=== PATIENT | female | born 1955 | race Caucasian/White ===

== ENCOUNTER 2016-03-24 18:11 | Emergency (ER) | payer OTHER ==
[~2016-03-24] VITALS: Ht 177.8 cm; Wt 85.5 kg
[~2016-03-24 18:11] MED LIST: Albuterol 2.5 mg/3 mL Inhalation Solution NEB ONE
[2016-03-24 18:14] VITALS: BP 132/77; PULSE 117; RESP 26; O2SAT 91
[2016-03-24 18:38] VITALS: BP 104/78; PULSE 115; RESP 26; O2SAT 92
--- NOTE | 2016-03-24 18:54 | ED.REPORT ---
HPI-Dyspnea / Wheezing Date of Service Mar 24, 2016 ED Provider: Dr. Leon Urena Patient is a 60-year-old female who reports to the ED complaining of SOB onset two days ago. Patient states that she "really can't breathe." She has been using inhalers and nebulizers, but they aren't working. Symptoms have increased in severity since onset. Pt c/o associated pain with inhalation. She states she has pet ferrets and they have pneumonia. Nursing Notes Stated Complaint: TROUBLE BREATHING Chief Complaint: Respiratory Distress Nursing Notes Reviewed: Yes Allergies: Coded Allergies: No Known Allergies (Unverified , 03/24/16) General Time Seen by MD: 18:53 Chief Complaint Shortness of breath Hx Obtained From: Patient Arrived By: Walk-in Sudden in Onset?: Yes Onset Occurred: 2 days ago Symptom Duration: Since onset Severity: Current: Mild Recent Healthcare: Recent doctor visit, Recent hospitalization Similar Sx Previous: Yes Past Medical History Past Medical History denies Past Surgical History denies Smoking History Never Smoker Ambulatory Status Independent Review of Systems Respiratory: Reports: Shortness of breath Cardiovascular: Reports: Chest pain (with inhalation) Complete sys rev & neg: except as marked. Physical Exam Initial Vital Signs Vital Signs (First) Date Time Temp Pulse Resp B/P Pulse Ox O2 Delivery O2 Flow Rate FiO2 03/24/16 18:14 37.4 117 26 132/77 91 Room Air 03/24/16 19:34 4 Initial VS: Reviewed Head / Eyes: Atraumatic, Normocephalic, PERRL ENT: Mucous membranes moist, Conjunctiva normal, No scleral icterus Abdomen / GI: Soft, Non-tender, No guarding, No rebound, No distention Extremities: Vascular intact, Neuro intact, No swelling, No tenderness Skin: Warm, Dry, No cyanosis Neurologic: Alert, Oriented, Nonfocal Psychiatric: Mood/affect normal, Behavior normal, Normal thought content General/Constitutional: Awake, Alert, Cooperative Distress / Hydration: Positive: Distress mild Neck: Atraumatic, Supple, No meningismus, Full range of motion, No swelling, Non-tender Resp Distress / Stridor: Positive: Resp distress mild significant respiratory splinting with inhalation Heart Rate / Rhythm: Positive: Tachycardia Interpretation & Diagnostics Interpretation & Diagnostics: ANGIOGRAM CT IMPRESSION: 1. No acute process. 2. No pulmonary embolus. 3. Small hiatal hernia. 4. Small right upper lobe nodule; followup is recommended as below. Fleischner Society criteria for SOLID lung nodule followup. Nodule size (mm)Low-risk patientHigh-risk [id number] follow-up neededFollow-up at 12 mo; if no change, no further follow-up>7-7Gunpea-nn CT at 12 mo; if no change, no further follow-up needed.Initial follow-up CT at 6-12 mo, then 18-24 mo if no change. >6-8Initial follow-up CT at 6-12 mo, then 18-24 mo if no change. Initial follow-up CT at 3-6 mo, then 9-12 mo and 24 mo if no change. >8Follow-up CT at 3, 9, 24 mo. Or PET and/or biopsy.Same as for low-risk pts. Dictated by: Blaine Conn M.D. on 03/24/2016 at 21:50 Approved by: Blaine Conn M.D. on 03/24/2016 at 21:52 Lab Results Interpretation Result Diagram: 03/24/16 1850 03/24/16 1850 Test 03/24/16 18:45 03/24/16 18:50 03/24/16 22:57 D-Dimer < 0.5mg/L (<0.50) Hold Morales Top Tube Received (Received) White Blood Count 6.7th/mm3 (3.8-10.1) Red Blood Count 5.18mil/mm3 (3.90-5.20) Hemoglobin 15.5g/dL (12.0-15.6) Hematocrit 44.1% (35.0-46.0) Mean Corpuscular Volume 85.1fL (81-100) Mean Corpuscular Hemoglobin 29.9pg (27.0-35.0) Mean Corpuscular Hemoglobin Concent 35.1% (32.0-37.0) Red Cell Distribution Width 12.8% (12.3-15.4) Platelet Count 196bil/L (150-400) Neutrophils (%) (Auto) 86.2% (40-74) Lymphocytes (%) (Auto) 3.7% (14-46) Monocytes (%) (Auto) 8.9% (4-12) Eosinophils (%) (Auto) 0.6% (0-5) Basophils (%) (Auto) 0.3% (0-3) Sodium Level 137mEq/L (134-144) Potassium Level 3.7mEq/L (3.5-5.2) Chloride Level 101mEq/L (97-108) Carbon Dioxide Level 18mmol/L (18-29) Blood Urea Nitrogen 10mg/dL (8-27) Creatinine 0.89mg/dL (0.57-1.00) Estimat Glomerular Filtration Rate 92mL/min (>59) Glucose Level 116mg/dL (60-99) Calcium Level 8.8mg/dL (8.5-10.1) Total Bilirubin 0.5mg/dL (0.0-1.2) Aspartate Amino Transf (AST/SGOT) 20U/L (0-50) Alanine Aminotransferase (ALT/SGPT) 18U/L (0-32) Alkaline Phosphatase 62U/L (25-165) Pro-B-Type Natriuretic Peptide 278.7pg/mL (0-287) Total Protein 7.5g/dL (6.4-8.4) Albumin 4.1g/dL (3.4-5.0) Troponin T 0.010ug/L (0.0-0.011) Lab Results Interpretation: Influenza A positive ECG Interpretation Time: 18:54 Interpreted by: ED physician Normal ECG Interpretation: Normal sinus rhythm Rhythm / Conduction: Tachycardia (rate 109) X-Ray Chest Interpretation Chest Xray Interpretation: IMPRESSION: No acute process. Dictated by: Blaine Conn M.D. on 03/24/2016 at 19:37 Approved by: Blaine Conn M.D. on 03/24/2016 at 19:38 View: Portable Interpretation / Wet Read by: Interpret - Radiologist Re-Eval/Medical Decision Med Decision/Clinical Course 60-year-old female with a history of COPD presents with fever chills pleuritic chest pain and bronchospasm. Pulmonary emboli was ruled out. Myocardial infarction ruled out Influenza A was ruled in. She is treated aggressively with bronchodilators and steroids. She looked and felt much better. She had mild tachycardia after the 20 mg albuterol however her heart rate settled down to 1:15 at rest. She felt well enough for discharge. She will be placed on Tamiflu. Prednisone. Close outpatient follow-up. Return if any problems or any worsening symptoms. Re-Evaluation/Progress : Time of Eval: 11:30 Patient Status: Condition improved Re-Evaluation/Progress Note: Pt rechecked. Informed pt of diagnosis and plan for treatment. Pt understands and agrees with plan. F/U and RTER warnings given. All questions addressed. Counseled Regarding: Diagnosis, Lab results, Need for follow-up, When/why to return to ED Discharge & Departure Shift Change Sign-Out Response to Therapy: Improved Impression: Primary Impression: Acute exacerbation of chronic obstructive pulmonary disease (COPD) Additional Impression: Influenza A Disposition: Home Discharge Condition All VS Reviewed: Yes Condition: Stable Patient Instructions: Chronic Obstructive Pulmonary Disease (ED), Upper Respiratory Infection (ED) Additional Instructions: Thank you for coming to the Emergency Room. The influenza test came back positive. You have influenza A as well as an acute exacerbation of chronic obstructive pulmonary disease. Usual inhalers as instructed. Use Prednisone daily for 3 more days and Tamiflu twice daily for 5 days. Take Doxycycline twice daily for 7 days. The CAT scan of the chest shows a pulmonary nodule. This will need follow-up CAT scan in about 12 months. Follow up with your primary care physician this week and take a copy of the CT reading back to her doctor's office with you. Referrals: [facility] [place] Attestation Portion of this note were transcribed by Jose Rodrigues. I, Dr. Urena, personally performed the history, physical exam, and medical decision-making: I reviewed and confirmed the accuracy for the information in the transcribed note. Signed by: suraj Gonzales, 03/24/161999 copies to: [facility] Leon Urena DO Mar 24, 2016 18:54 JOSE RODRIGUES Mar 24, 2016 19:29
[2016-03-24 18:58] LABS: BASOPHILS % (AUTO) 0.3 % (0-3); EOSINOPHILS % (AUTO) 0.6 % (0-5); MONOCYTES % (AUTO) 8.9 % (4-12); Mean Corpuscular Hemoglobin 29.9 pg (27.0-35.0); Mean Corpuscular Volume 85.1 fL (81-100); NEUTROPHILS % (AUTO) 86.2 % (40-74); Platelet Count 196 bil/L (150-400)
[2016-03-24] MEDS ORDERED: Albuterol-Ipratropium 3 mL Inhalation Solution NEB ONE (19:20)
[2016-03-24 19:23] LABS: TROPONIN T < 0.010 ug/L (0.0-0.011)
[2016-03-24 19:34] VITALS: PULSE 105; RESP 24; O2SAT 95
--- NOTE | 2016-03-24 19:39 | DRSVH ---
PROCEDURE: X-RAY CHEST ONE VIEW, PORTABLE ([id number]) INDICATIONS: FEVER, RAPID RR TECHNIQUE: One view of the chest was acquired. COMPARISON: None. FINDINGS: Surgical changes and devices: None. Lungs and pleura: No pleural effusions or pneumothorax. Scarring versus atelectasis within the righ t midlung. Lungs are otherwise clear. Mediastinum: Mediastinal contours appear normal. Heart size is normal. Bones and chest wall: No suspicious bony lesions. Overlying soft tissues appear unremarkable. IMPRESSION: No acute process. Dictated by: Blaine Conn M.D. on 03/24/2016 at 19:37 Approved by: Blaine Conn M.D. on 03/24/2016 at 19:38
[2016-03-24] MEDS ORDERED: MethylprednisoLONE Sodium Succinate 62.5 mg/mL 2 mL Inj IVPUSH ONE (19:45)
[2016-03-24 19:57] VITALS: BP 103/56; PULSE 117; RESP 18; O2SAT 96
[2016-03-24 20:33] VITALS: BP 117/58; PULSE 120; RESP 20; O2SAT 95
[2016-03-24] MEDS ORDERED: 0.9% Sodium Chloride 1,000 ML IV SCH (21:05)
--- NOTE | 2016-03-24 21:54 | DRSVH ---
PROCEDURE: CT ANGIO CHEST PULMONARY EMBOLISM ([id number]) INDICATIONS: dyspnea, hypoxia, hypotension, TECHNIQUE: After the administration of intravenous contrast, 2 mm thick sections acquired from the pulmonary api darrian to the posterior costophrenic angles. 3-dimensional maximum intensity projection (MIP) coronal a nd sagittal reformats were then acquired through the thorax. For radiation dose reduction, the follo wing was used: automated exposure control, adjustment of mA and/or kV according to patient size. COMPARISON: None. FINDINGS: Image quality: Excellent. Pulmonary arteries: Pulmonary arteries are normal in size, and demonstrate no intraluminal filling d efects to suggest central pulmonary embolism. Lungs and pleura: There is subsegmental scarring versus atelectasis within the right upper lobe anter iorly. There is a 4 mm diameter nodule within the right apex medially. No pleural effusions or pneumo thorax. Central and peripheral airways are patent. Mediastinum: Heart size is normal, without pericardial effusion. No mediastinal or hilar adenopathy . Thoracic aorta is normal in caliber and enhancement. Esophagus is normal in caliber. There is a s mall hiatal hernia. Bones and chest wall: No suspicious bony lesions. Ribs and thoracic spine appear intact throughout. Thyroid gland is within normal limits as visualized. No axillary or supraclavicular adenopathy. Abdomen: Visualized upper abdominal solid organs appear normal in the early arterial phase of enhanc ement. IMPRESSION: 1. No acute process. 2. No pulmonary embolus. 3. Small hiatal hernia. 4. Small right upper lobe nodule; followup is recommended as below. Fleischner Society criteria for SOLID lung nodule followup. Nodule size (mm)Low-risk patientHigh-risk [id number] follow-up neededFollow-up at 12 mo; if no faulkner e, no further follow-up>[id number]-[id number] CT at 12 mo; if no change, no further follow-up needed.Initial f ollow-up CT at 6-12 mo, then 18-24 mo if no change. >6-8Initial follow-up CT at 6-12 mo, then 18-24 mo if no change. Initial follow-up CT at 3-6 mo, then 9-12 mo and 24 mo if no change. >8Follow-up CT at 3, 9, 24 mo. Or PET and/or biopsy.Same as for low-risk pts. Dictated by: Blaine Conn M.D. on 03/24/2016 at 21:50 Approved by: Blaine Conn M.D. on 03/24/2016 at 21:52
[2016-03-24 23:42] VITALS: BP 116/55; PULSE 137; RESP 22; O2SAT 98
[2016-03-25 00:23] VITALS: BP 123/51; PULSE 134; RESP 18; O2SAT 94
[2016-03-25 01:17] VITALS: BP 112/59; PULSE 130; RESP 24; O2SAT 95
== END 2016-03-25 01:19 | disposition home or self-care (01) ==
LOC: SED 18:11
DX: J44.1 Chronic obstructive pulmonary disease with (acute) exacerbation (principal); J10.89 Influenza due to other identified influenza virus with other manifestations; R50.9 Fever, unspecified; R68.83 Chills (without fever); R07.81 Pleurodynia
CPT/HCPCS: 36415; 71010; 71275; 80053; 83880; 84484; 85025; 85379; 87804; 93005; 94644; 94664; 96361; 96374; 99285; J2930; J7030; J7620; Q9967